=== PATIENT | female | born 1940 | race Caucasian/White ===

== ENCOUNTER 2021-10-09 08:32 | Inpatient (IN) | payer BC, MEDICARE ==
[~2021-10-09] VITALS: Ht 152.4 cm; Wt 65.8 kg
[2021-10-09] MEDS ORDERED: PANTOPRAZOLE 80 MG in SODIUM CHLORIDE 0.9% 100 ML IV STA (09:22)
[2021-10-09] MEDS ORDERED: PANTOPRAZOLE SODIUM 40 MG/VIAL IV STA (09:22)
[2021-10-09] MEDS ORDERED: ONDANSETRON HCL 4MG/2ML INJ IV STA (09:26)
[2021-10-09] MEDS ORDERED: MORPHINE SULFATE 4 MG/ML CPJ (NOT FOR IM USE) IV STA (09:26)
[2021-10-09] MEDS ORDERED: SODIUM CHLORIDE 0.9% 1,000 ML IV ONE (09:30)
[2021-10-09] MEDS ORDERED: MORPHINE SULFATE 4 MG/ML CPJ (NOT FOR IM USE) IV NR (09:45)
[2021-10-09] MEDS ORDERED: ONDANSETRON HCL 4MG/2ML INJ IV NR (09:45)
[2021-10-09 09:46] LABS: BASOPHILS % 0.5 % (0.0-2.0); EOSINOPHILS % 0.6 % (0.0-5.0); HEMATOCRIT. 25.4 % (36.0-48.0); HEMOGLOBIN. 7.8 g/dL (12.0-16.0); MEAN CORPUSCULAR HEMOGLOBIN 22.1 pg (28.0-32.0); MEAN CORPUSCULAR VOLUME 71.7 fL (81.0-99.0); MEAN PLATELET VOLUME 10.3 fl (7.4-10.4); MONOCYTES % 9.7 % (2.0-8.0); NEUTROPHILS % 67.2 % (40.0-76.0); PLATELET 187 x1000/uL (130-400); RED BLOOD CELL COUNT 3.55 mill/uL (4.2-5.4); RED CELL DISTRIBUTION WIDTH 18.4 % (11.6-14.6)
[2021-10-09 09:54] LABS: CHLORIDE 108 mEq/L (98-107)
[2021-10-09 09:57] LABS: INR 1.2; PARTIAL THROMBOPLASTIN TIME 25.4 sec (23.4-31.0); PROTHROMBIN TIME 12.4 sec (9.6-11.0)
[2021-10-09 10:06] LABS: BETA HYDROXYBUTYRATE 0.3 mMol/L (0.0-0.3)
[2021-10-09] MEDS ORDERED: INSULIN REGULAR (HUMULIN R) 300UNITS/3ML VIAL IV ONE (11:30)
[2021-10-09] MEDS ORDERED: SODIUM POLYSTYRENE SULFONATE 15 G/60 ML BOT PO ONE (11:30)
[2021-10-09] MEDS ORDERED: SODIUM BICARBONATE 8.4% 1 MEQ/ML 50ML SYR IV ONE (11:30)
[2021-10-09] MEDS ORDERED: ALBUTEROL (0.083%) 2.5MG/3ML NEB HHN ONE (11:30)
[2021-10-09 12:11] LABS: CLARITY URINE CLEAR (CLEAR); COLOR URINE YELLOW (YELLOW); KETONES URINE NEGATIVE (NEGATIVE); LEUKOCYTE ESTERASE URINE NEGATIVE (NEGATIVE); NITRITE URINE NEGATIVE (NEGATIVE); OCCULT BLOOD URINE NEGATIVE (NEGATIVE); PROTEIN URINE NEGATIVE (NEGATIVE); SPECIFIC GRAVITY URINE 1.018 (1.005-1.030); UROBILINOGEN URINE 0.2 E.U./dL (0.2-1.0)
[2021-10-09] MEDS ORDERED: CEFTRIAXONE 1 G PREMIX 50 ML IV ONE (12:15)
[2021-10-09] MEDS ORDERED: SODIUM BICARBONATE 8.4% 1 MEQ/ML 50ML SYR IV NR (12:30)
[2021-10-09] MEDS ORDERED: SODIUM BICARBONATE 100 MEQ in DEXTROSE 5% WATER 1,000 ML IV SCH (12:30)
[2021-10-09] MEDS: SODIUM BICARBONATE 100 MEQ in SODIUM CHLORIDE 0.45% 1,000 ML IV SCH ×2 (13:21→22:47)
[2021-10-09 16:02] LABS: CREATINE KINASE 30 IU/L (26-192)
[2021-10-09] MEDS ORDERED: INSULIN REGULAR (HUMULIN R) 300UNITS/3ML VIAL SUBCUT NR (17:13)
[2021-10-09] MEDS ORDERED: INSULIN LISPRO (HUMALOG) 300UNITS/3ML VIAL SUBCUT NR (17:14)
[2021-10-09] MEDS ORDERED: INSULIN LISPRO 100 UNITS/ML SUBCUT NR (17:30)
[2021-10-09] MEDS ORDERED: MAGNESIUM/ALUMINUM HYDROXIDE/SIMETHICONE 30ML UDC PO PRN (20:15)
[2021-10-09] MEDS ORDERED: DIPHENHYDRAMINE 50MG/ML VIAL IV PRN (20:15)
[2021-10-09] MEDS ORDERED: ACETAMINOPHEN 325MG TABLET PO PRN (20:15)
[2021-10-09] MEDS ORDERED: DEXTROSE 50% WATER 50ML SYRINGE IV PRN (20:15)
[2021-10-09] MEDS ORDERED: ONDANSETRON HCL 4MG/2ML INJ IV PRN (20:15)
[2021-10-09] MEDS ORDERED: CLONIDINE 0.1MG TABLET PO PRN (20:15)
[2021-10-09 21:00] VITALS: BP 120/94
[2021-10-09] MEDS: BLOOD SUGAR DIAGNOSTIC STRIP TEST SCH (21:00)
[2021-10-09] MEDS: INSULIN GLARGINE 100 UNITS/ML SUBCUT SCH ×2 (22:34→22:38)
[2021-10-09] MEDS: SODIUM CHLORIDE 0.9% 1,000 ML IV SCH (22:38)
[2021-10-09] MEDS: INSULIN LISPRO 100 UNITS/ML SUBCUT SCH (22:46)
[2021-10-09] MEDS: ACETAMINOPHEN 325MG TABLET PO PRN (23:47)
[2021-10-09] MEDS: METOCLOPRAMIDE HCL 10MG/2ML VIAL IV SCH (23:47)
[2021-10-10] VITALS (29 sets, daily range): BP systolic 17–138; BP diastolic 26–113
[2021-10-10] MEDS: SODIUM CHLORIDE 0.9% 1,000 ML IV SCH ×3 (02:17→23:53)
[2021-10-10] MEDS: METOCLOPRAMIDE HCL 10MG/2ML VIAL IV SCH ×3 (06:44→23:53)
[2021-10-10] MEDS: BLOOD SUGAR DIAGNOSTIC STRIP TEST SCH ×3 (07:30→21:00)
[2021-10-10] MEDS: PANTOPRAZOLE SODIUM 40 MG/VIAL IV SCH (09:00)
[2021-10-10 09:56] LABS: BASOPHILS % 0.2 % (0.0-2.0); LYMPHOCYTES % 9.1 % (20.0-50.0); MEAN CORPUSCULAR HEMOGLOBIN 21.9 pg (28.0-32.0); MEAN CORPUSCULAR VOLUME 69.3 fL (81.0-99.0); MEAN PLATELET VOLUME 10.4 fl (7.4-10.4); MONOCYTES % 9.4 % (2.0-8.0); NEUTROPHILS % 81.3 % (40.0-76.0); PLATELET 180 x1000/uL (130-400); RED BLOOD CELL COUNT 2.97 mill/uL (4.2-5.4); RED CELL DISTRIBUTION WIDTH 18.6 % (11.6-14.6)
[2021-10-10 09:57] LABS: CHLORIDE 106 mEq/L (98-107)
[2021-10-10 10:01] LABS: HEMATOCRIT. 20.6 % (36.0-48.0); HEMOGLOBIN. 6.5 g/dL (12.0-16.0)
[2021-10-10 10:04] LABS: PHOSPHORUS 3.4 mg/dL (2.5-4.9); TOTAL IRON BINDING CAPACITY 394 ug/dL (250-450)
[2021-10-10] MEDS: INSULIN LISPRO 100 UNITS/ML SUBCUT SCH ×4 (10:27→22:25)
[2021-10-10 11:10] LABS: FOLIC ACID (FOLATE) SERUM 16.5 ng/mL (>5.38)
[2021-10-10] MEDS: INSULIN GLARGINE 100 UNITS/ML SUBCUT SCH ×2 (11:41→22:25)
[2021-10-10] MEDS: IRON SUCROSE COMPLEX 100 MG/5 ML ML IV SCH (11:50)
[2021-10-10] MEDS ORDERED: MAGNESIUM 2 G PREMIX 50 ML IV NR ×2 (12:00→22:00)
[2021-10-10] MEDS: CITRIC ACID/SODIUM CITRATE SOLN 15ML UDC PO SCH (12:31)
[2021-10-10] MEDS ORDERED: INSULIN LISPRO 100 UNITS/ML SUBCUT PRN (16:00)
[2021-10-10] MEDS: ACETAMINOPHEN 325MG TABLET PO PRN (17:53)
[2021-10-10] MEDS: ZOLPIDEM TARTRATE 5MG TABLET PO PRN (23:53)
[2021-10-11] VITALS (81 sets, daily range): BP systolic 51–152; BP diastolic 18–104
[2021-10-11] MEDS ORDERED: DILTIAZEM HCL 5MG/ML 5ML VIAL IV NR (01:30)
[2021-10-11] MEDS ORDERED: PHENYLEPHRINE 100 MG in DEXT 5% WATER 240 ML IV PRN (02:30)
[2021-10-11] MEDS ORDERED: AMIODARONE HCL 900 MG in DEXT 5% WATER 482 ML IV PRN (02:30)
[2021-10-11 04:34] LABS: BASOPHILS % 0.2 % (0.0-2.0); HEMATOCRIT. 33.1 % (36.0-48.0); HEMOGLOBIN. 10.6 g/dL (12.0-16.0); LYMPHOCYTES % 10.2 % (20.0-50.0); MEAN CORPUSCULAR HEMOGLOBIN 23.7 pg (28.0-32.0); MEAN CORPUSCULAR VOLUME 74.1 fL (81.0-99.0); MEAN PLATELET VOLUME 10.3 fl (7.4-10.4); MONOCYTES % 12.6 % (2.0-8.0); PLATELET 213 x1000/uL (130-400); RED BLOOD CELL COUNT 4.46 mill/uL (4.2-5.4); RED CELL DISTRIBUTION WIDTH 19.8 % (11.6-14.6)
[2021-10-11 04:53] LABS: PHOSPHORUS 2.7 mg/dL (2.5-4.9)
[2021-10-11] MEDS: METOCLOPRAMIDE HCL 10MG/2ML VIAL IV SCH ×4 (05:26→23:54)
[2021-10-11 06:32] LABS: HEPATITIS B SURFACE ANTIGEN NEGATIVE
[2021-10-11] MEDS: BLOOD SUGAR DIAGNOSTIC STRIP TEST SCH ×4 (07:50→21:01)
[2021-10-11] MEDS ORDERED: LIDOCAINE HCL 1% 10 MG/ML 10ML VIAL ONE (08:57)
[2021-10-11] MEDS: PANTOPRAZOLE SODIUM 40 MG/VIAL IV SCH (09:05)
[2021-10-11] MEDS: INSULIN LISPRO 100 UNITS/ML SUBCUT SCH ×4 (09:22→21:14)
[2021-10-11] MEDS: IRON SUCROSE COMPLEX 100 MG/5 ML ML IV SCH (09:51)
[2021-10-11] MEDS ORDERED: SODIUM CHLORIDE 0.45% 250 ML IV ONE (11:15)
[2021-10-11 11:35] LABS: PLATELET ESTIMATE NORMAL
[2021-10-11 12:56] LABS: HEMOGLOBIN 8.7 g/dL (12.0-16.0)
[2021-10-11] MEDS: MIDODRINE HCL 5MG TABLET PO SCH ×2 (13:05→16:51)
[2021-10-11] MEDS: SODIUM CHLORIDE 0.9% 1,000 ML IV SCH (13:06)
[2021-10-11] MEDS ORDERED: METOPROLOL TARTRATE 5MG/5ML VIAL IV PRN (15:00)
[2021-10-11] MEDS ORDERED: DIGOXIN 500MCG/2ML AMP IV NR (15:00)
[2021-10-11] MEDS: CITRIC ACID/SODIUM CITRATE SOLN 15ML UDC PO SCH (16:50)
[2021-10-11 20:15] LABS: HEMOGLOBIN 10.2 g/dL (12.0-16.0)
[2021-10-11] MEDS: INSULIN GLARGINE 100 UNITS/ML SUBCUT SCH (21:21)
[2021-10-12] VITALS (48 sets, daily range): BP systolic 71–161; BP diastolic 21–93
[2021-10-12 00:44] LABS: HEMATOCRIT 33.1 % (36.0-48.0); HEMOGLOBIN 10.5 g/dL (12.0-16.0)
[2021-10-12] MEDS: SODIUM CHLORIDE 0.9% 1,000 ML IV SCH (01:51)
[2021-10-12] MEDS: METOCLOPRAMIDE HCL 10MG/2ML VIAL IV SCH ×4 (05:45→23:11)
[2021-10-12 06:45] LABS: BASOPHILS % 0.1 % (0.0-2.0); EOSINOPHILS % 0.1 % (0.0-5.0); HEMOGLOBIN. 9.9 g/dL (12.0-16.0); LYMPHOCYTES % 13.4 % (20.0-50.0); MEAN CORPUSCULAR VOLUME 75.3 fL (81.0-99.0); MEAN PLATELET VOLUME 10.3 fl (7.4-10.4); MONOCYTES % 11.7 % (2.0-8.0); NEUTROPHILS % 74.7 % (40.0-76.0); PLATELET 163 x1000/uL (130-400); RED BLOOD CELL COUNT 4.12 mill/uL (4.2-5.4); RED CELL DISTRIBUTION WIDTH 19.5 % (11.6-14.6)
[2021-10-12 07:02] LABS: PHOSPHORUS 2.6 mg/dL (2.5-4.9)
[2021-10-12] MEDS: BLOOD SUGAR DIAGNOSTIC STRIP TEST SCH ×4 (08:00→21:31)
[2021-10-12] MEDS: INSULIN LISPRO 100 UNITS/ML SUBCUT SCH ×4 (08:00→21:31)
[2021-10-12] MEDS: PANTOPRAZOLE SODIUM 40 MG/VIAL IV SCH (08:44)
[2021-10-12] MEDS: CITRIC ACID/SODIUM CITRATE SOLN 15ML UDC PO SCH ×3 (08:44→16:51)
[2021-10-12] MEDS: MIDODRINE HCL 5MG TABLET PO SCH ×3 (08:45→16:55)
[2021-10-12] MEDS ORDERED: FUROSEMIDE 40MG/4ML VIAL IVP NR (09:15)
[2021-10-12] MEDS: IRON SUCROSE COMPLEX 100 MG/5 ML ML IV SCH (09:30)
[2021-10-12] MEDS ORDERED: LACTULOSE 20G/30ML UDC PO NR (11:00)
[2021-10-12] MEDS ORDERED: METOPROLOL TARTRATE 25MG TABLET PO SCH (11:15)
[2021-10-12 12:59] LABS: HEMATOCRIT 31.3 % (36.0-48.0); HEMOGLOBIN 10.1 g/dL (12.0-16.0)
[2021-10-12] MEDS ORDERED: DOPAMINE 400MG/250ML PREMIX 250 ML IV PRN (13:00)
[2021-10-12] MEDS: INSULIN GLARGINE 100 UNITS/ML SUBCUT SCH (21:31)
[2021-10-12] MEDS: ZOLPIDEM TARTRATE 5MG TABLET PO PRN (23:17)
[2021-10-13] VITALS (57 sets, daily range): BP systolic 74–188; BP diastolic 33–112
[2021-10-13] MEDS: METOCLOPRAMIDE HCL 10MG/2ML VIAL IV SCH ×4 (05:17→23:24)
[2021-10-13] MEDS: BLOOD SUGAR DIAGNOSTIC STRIP TEST SCH ×4 (08:14→21:15)
[2021-10-13] MEDS: INSULIN LISPRO 100 UNITS/ML SUBCUT SCH ×4 (08:14→21:16)
[2021-10-13 08:50] LABS: BASOPHILS % 0.1 % (0.0-2.0); EOSINOPHILS % 0.5 % (0.0-5.0); HEMATOCRIT. 30.9 % (36.0-48.0); HEMOGLOBIN. 9.9 g/dL (12.0-16.0); LYMPHOCYTES % 12.5 % (20.0-50.0); MEAN CORPUSCULAR HEMOGLOBIN 24.4 pg (28.0-32.0); MEAN CORPUSCULAR VOLUME 76.1 fL (81.0-99.0); MEAN PLATELET VOLUME 9.9 fl (7.4-10.4); MONOCYTES % 11.9 % (2.0-8.0); RED BLOOD CELL COUNT 4.06 mill/uL (4.2-5.4); RED CELL DISTRIBUTION WIDTH 20.4 % (11.6-14.6)
[2021-10-13] MEDS: MIDODRINE HCL 5MG TABLET PO SCH ×3 (09:00→16:29)
[2021-10-13 09:29] LABS: PLATELET 160 x1000/uL (130-400)
[2021-10-13] MEDS: IRON SUCROSE COMPLEX 100 MG/5 ML ML IV SCH (09:34)
[2021-10-13] MEDS: CITRIC ACID/SODIUM CITRATE SOLN 15ML UDC PO SCH ×3 (09:34→17:46)
[2021-10-13] MEDS: PANTOPRAZOLE SODIUM 40 MG/VIAL IV SCH (09:34)
[2021-10-13] MEDS: GUAIFENESIN 200MG/10ML SUGAR FREE UDC PO PRN (13:20)
[2021-10-13] MEDS: LACTULOSE 20G/30ML UDC PO SCH ×2 (13:21→21:15)
[2021-10-13] MEDS: HYDRALAZINE HCL 25MG TABLET PO SCH (16:43)
[2021-10-13] MEDS ORDERED: HYDRALAZINE 20MG/ML VIAL IV PRN (18:30)
[2021-10-13] MEDS: AMLODIPINE 5MG TABLET PO SCH (18:31)
[2021-10-13] MEDS: ZOLPIDEM TARTRATE 5MG TABLET PO PRN (21:15)
[2021-10-13] MEDS: INSULIN GLARGINE 100 UNITS/ML SUBCUT SCH (21:17)
[2021-10-14] VITALS (48 sets, daily range): BP systolic 75–168; BP diastolic 25–91
[2021-10-14] MEDS: METOCLOPRAMIDE HCL 10MG/2ML VIAL IV SCH ×4 (05:11→23:33)
[2021-10-14] MEDS: LACTULOSE 20G/30ML UDC PO SCH ×3 (05:11→21:32)
[2021-10-14] MEDS: BLOOD SUGAR DIAGNOSTIC STRIP TEST SCH ×4 (07:52→21:32)
[2021-10-14] MEDS: INSULIN LISPRO 100 UNITS/ML SUBCUT SCH ×4 (07:52→21:00)
[2021-10-14] MEDS: MIDODRINE HCL 5MG TABLET PO SCH (08:19)
[2021-10-14] MEDS: AMLODIPINE 5MG TABLET PO SCH (08:53)
[2021-10-14] MEDS: PANTOPRAZOLE SODIUM 40 MG/VIAL IV SCH (08:53)
[2021-10-14] MEDS: CITRIC ACID/SODIUM CITRATE SOLN 15ML UDC PO SCH ×3 (08:53→17:54)
[2021-10-14] MEDS: FUROSEMIDE 40MG/4ML VIAL IVP SCH (08:53)
[2021-10-14] MEDS: HYDRALAZINE HCL 25MG TABLET PO SCH ×3 (08:54→17:00)
[2021-10-14 09:44] LABS: BASOPHILS % 0.1 % (0.0-2.0); EOSINOPHILS % 0.6 % (0.0-5.0); HEMATOCRIT. 32.1 % (36.0-48.0); HEMOGLOBIN. 10.4 g/dL (12.0-16.0); LYMPHOCYTES % 12.2 % (20.0-50.0); MEAN CORPUSCULAR HEMOGLOBIN 24.9 pg (28.0-32.0); MEAN CORPUSCULAR VOLUME 77.3 fL (81.0-99.0); MEAN PLATELET VOLUME 9.5 fl (7.4-10.4); MONOCYTES % 13.8 % (2.0-8.0); NEUTROPHILS % 73.3 % (40.0-76.0); PLATELET 144 x1000/uL (130-400); RED BLOOD CELL COUNT 4.15 mill/uL (4.2-5.4); RED CELL DISTRIBUTION WIDTH 20.6 % (11.6-14.6)
[2021-10-14] MEDS: ISOSORBIDE DINITRATE 10MG TABLET PO SCH ×2 (12:04→17:00)
[2021-10-14] MEDS: INSULIN GLARGINE 100 UNITS/ML SUBCUT SCH (21:35)
[2021-10-15] VITALS (45 sets, daily range): BP systolic 91–148; BP diastolic 32–85
[2021-10-15 05:25] LABS: BASOPHILS % 0.1 % (0.0-2.0); EOSINOPHILS % 1.2 % (0.0-5.0); HEMATOCRIT. 31.1 % (36.0-48.0); HEMOGLOBIN. 10.1 g/dL (12.0-16.0); LYMPHOCYTES % 13.1 % (20.0-50.0); MEAN CORPUSCULAR HEMOGLOBIN 25.2 pg (28.0-32.0); MEAN CORPUSCULAR VOLUME 78.1 fL (81.0-99.0); MEAN PLATELET VOLUME 9.2 fl (7.4-10.4); MONOCYTES % 14.6 % (2.0-8.0); PLATELET 141 x1000/uL (130-400); RED BLOOD CELL COUNT 3.99 mill/uL (4.2-5.4); RED CELL DISTRIBUTION WIDTH 21.6 % (11.6-14.6)
[2021-10-15 05:33] LABS: INR 1.2; PROTHROMBIN TIME 13.2 sec (9.6-11.0)
[2021-10-15] MEDS: LACTULOSE 20G/30ML UDC PO SCH ×3 (06:00→21:04)
[2021-10-15] MEDS: METOCLOPRAMIDE HCL 10MG/2ML VIAL IV SCH ×4 (06:21→23:24)
[2021-10-15] MEDS: BLOOD SUGAR DIAGNOSTIC STRIP TEST SCH ×4 (07:58→21:04)
[2021-10-15] MEDS: INSULIN LISPRO 100 UNITS/ML SUBCUT SCH ×4 (07:58→21:03)
[2021-10-15] MEDS: AMLODIPINE 5MG TABLET PO SCH (08:28)
[2021-10-15] MEDS: FUROSEMIDE 40MG/4ML VIAL IVP SCH (08:29)
[2021-10-15] MEDS: HYDRALAZINE HCL 25MG TABLET PO SCH ×3 (08:29→17:27)
[2021-10-15] MEDS: ISOSORBIDE DINITRATE 10MG TABLET PO SCH ×2 (08:29→12:34)
[2021-10-15] MEDS: CITRIC ACID/SODIUM CITRATE SOLN 15ML UDC PO SCH ×3 (08:29→17:27)
[2021-10-15] MEDS: PANTOPRAZOLE SODIUM 40 MG/VIAL IV SCH (08:29)
[2021-10-15] MEDS ORDERED: MIDAZOLAM HCL 2 MG/2 ML VIAL ONE (14:54)
[2021-10-15] MEDS ORDERED: PROPOFOL 200MG/20ML VIAL IV ONE (14:54)
[2021-10-15] MEDS ORDERED: LIDOCAINE HCL 1% 10 MG/ML 10ML VIAL ONE (14:54)
[2021-10-15] MEDS ORDERED: PHENYLEPHRINE HCL 10 MG/ML 1ML (IV VIAL) IV ONE (14:55)
[2021-10-15] MEDS ORDERED: EPHEDRINE SULFATE 50MG/ML VIAL ONE (14:58)
[2021-10-15] MEDS: ACETAMINOPHEN 325MG TABLET PO PRN (20:43)
[2021-10-15] MEDS: INSULIN GLARGINE 100 UNITS/ML SUBCUT SCH (21:04)
[2021-10-16] VITALS (53 sets, daily range): BP systolic 88–158; BP diastolic 26–99
[2021-10-16 05:42] LABS: BASOPHILS % 0.2 % (0.0-2.0); HEMATOCRIT. 32.6 % (36.0-48.0); HEMOGLOBIN. 10.5 g/dL (12.0-16.0); LYMPHOCYTES % 15.5 % (20.0-50.0); MEAN CORPUSCULAR VOLUME 77.7 fL (81.0-99.0); MEAN PLATELET VOLUME 9.7 fl (7.4-10.4); MONOCYTES % 13.1 % (2.0-8.0); NEUTROPHILS % 69.2 % (40.0-76.0); PLATELET 150 x1000/uL (130-400); RED BLOOD CELL COUNT 4.19 mill/uL (4.2-5.4); RED CELL DISTRIBUTION WIDTH 22.1 % (11.6-14.6)
[2021-10-16] MEDS: METOCLOPRAMIDE HCL 10MG/2ML VIAL IV SCH ×4 (06:03→23:59)
[2021-10-16] MEDS: LACTULOSE 20G/30ML UDC PO SCH ×3 (06:46→21:08)
[2021-10-16] MEDS: BLOOD SUGAR DIAGNOSTIC STRIP TEST SCH ×4 (08:32→21:08)
[2021-10-16] MEDS: CITRIC ACID/SODIUM CITRATE SOLN 15ML UDC PO SCH ×3 (08:39→18:01)
[2021-10-16] MEDS: PANTOPRAZOLE SODIUM 40 MG/VIAL IV SCH (08:39)
[2021-10-16] MEDS: AMLODIPINE 5MG TABLET PO SCH (08:40)
[2021-10-16] MEDS: INSULIN LISPRO 100 UNITS/ML SUBCUT SCH ×4 (08:40→21:00)
[2021-10-16] MEDS: HYDRALAZINE HCL 25MG TABLET PO SCH ×3 (09:00→17:00)
[2021-10-16] MEDS ORDERED: DILTIAZEM HCL 5MG/ML 5ML VIAL IV SCH (09:30)
[2021-10-16] MEDS ORDERED: AMIODARONE HCL 150 MG in DEXT 5% WATER 100 ML IV SCH (10:00)
[2021-10-16] MEDS ORDERED: POTASSIUM CHLORIDE INJ 40 MEQ in DEXT 5% WATER 250 ML IV SCH (11:00)
[2021-10-16] MEDS ORDERED: POTASSIUM CHLORIDE 20MEQ/PACKET PO NR (11:00)
[2021-10-16] MEDS: FUROSEMIDE 40MG/4ML VIAL IVP SCH (11:08)
[2021-10-16] MEDS ORDERED: DILTIAZEM HCL 5MG/ML 5ML VIAL IV NR (11:30)
[2021-10-16] MEDS: METOPROLOL TARTRATE 25MG TABLET PO SCH ×2 (11:46→21:07)
[2021-10-16] MEDS ORDERED: AMIODARONE HCL 900 MG in DEXT 5% WATER 482 ML IV PRN (12:30)
[2021-10-16] MEDS: METOPROLOL TARTRATE 5MG/5ML VIAL IV PRN (18:53)
[2021-10-16] MEDS: INSULIN GLARGINE 100 UNITS/ML SUBCUT SCH (21:54)
[2021-10-17] VITALS (47 sets, daily range): BP systolic 92–157; BP diastolic 35–94
[2021-10-17] MEDS: METOCLOPRAMIDE HCL 10MG/2ML VIAL IV SCH ×3 (05:35→18:24)
[2021-10-17] MEDS: METOPROLOL TARTRATE 5MG/5ML VIAL IV PRN (05:35)
[2021-10-17] MEDS: LACTULOSE 20G/30ML UDC PO SCH ×3 (05:36→22:43)
[2021-10-17 05:53] LABS: BASOPHILS % 0.3 % (0.0-2.0); EOSINOPHILS % 2.2 % (0.0-5.0); HEMOGLOBIN. 10.9 g/dL (12.0-16.0); LYMPHOCYTES % 16.6 % (20.0-50.0); MEAN CORPUSCULAR HEMOGLOBIN 24.9 pg (28.0-32.0); MEAN PLATELET VOLUME 9.9 fl (7.4-10.4); MONOCYTES % 10.1 % (2.0-8.0); NEUTROPHILS % 70.8 % (40.0-76.0); PLATELET 148 x1000/uL (130-400); RED BLOOD CELL COUNT 4.36 mill/uL (4.2-5.4); RED CELL DISTRIBUTION WIDTH 23.1 % (11.6-14.6)
[2021-10-17] MEDS ORDERED: IODIXANOL 320MG/ML 100 ML BOTTLE IV ONE ×2 (07:18→13:23)
[2021-10-17] MEDS ORDERED: DIPHENHYDRAMINE 50MG/ML VIAL ONE (07:18)
[2021-10-17] MEDS ORDERED: HEPARIN 1000 UNITS/ML 10ML ONE (07:18)
[2021-10-17] MEDS ORDERED: FENTANYL CITRATE/PF 50MCG/ML 2ML VIAL ONE ×2 (07:18→14:04)
[2021-10-17] MEDS ORDERED: VERAPAMIL HCL 2.5 MG/1 ML 2ML VIAL IV ONE (07:18)
[2021-10-17] MEDS ORDERED: MIDAZOLAM HCL 2 MG/2 ML VIAL ONE (07:19)
[2021-10-17] MEDS ORDERED: LIDOCAINE HCL 1% 10 MG/ML 10ML VIAL ONE ×4 (07:19→15:03)
[2021-10-17] MEDS: INSULIN LISPRO 100 UNITS/ML SUBCUT SCH ×4 (07:42→21:25)
[2021-10-17] MEDS: BLOOD SUGAR DIAGNOSTIC STRIP TEST SCH ×4 (07:42→21:11)
[2021-10-17] MEDS: CITRIC ACID/SODIUM CITRATE SOLN 15ML UDC PO SCH ×3 (09:00→18:49)
[2021-10-17] MEDS: PANTOPRAZOLE SODIUM 40 MG/VIAL IV SCH (09:14)
[2021-10-17] MEDS ORDERED: ATROPINE SULFATE 1MG/10ML SYR IV PRN (09:30)
[2021-10-17] MEDS: HYDRALAZINE HCL 25MG TABLET PO SCH ×3 (09:54→18:24)
[2021-10-17] MEDS: METOPROLOL TARTRATE 25MG TABLET PO SCH (09:54)
[2021-10-17] MEDS: AMLODIPINE 5MG TABLET PO SCH (09:56)
[2021-10-17] MEDS ORDERED: GENTAMICIN SULF 40MG/ML 2ML VIAL ONE (13:23)
[2021-10-17] MEDS ORDERED: PROPOFOL 200MG/20ML VIAL IV ONE (13:52)
[2021-10-17] MEDS ORDERED: PHENYLEPHRINE HCL 10 MG/ML 1ML (IV VIAL) IV ONE (13:53)
[2021-10-17] MEDS ORDERED: ATROPINE SULFATE 1MG/10ML SYR ONE (14:12)
[2021-10-17] MEDS ORDERED: CEFAZOLIN SODIUM 1000MG/VIAL ONE (14:39)
[2021-10-17] MEDS ORDERED: ONDANSETRON HCL 4MG/2ML INJ ONE (14:44)
[2021-10-17] MEDS ORDERED: AMIODARONE HCL 50MG/ML 3ML VIAL IV ONE (15:11)
[2021-10-17] MEDS ORDERED: AMIODARONE HCL 900 MG in DEXT 5% WATER 482 ML IV PRN (16:00)
[2021-10-17] MEDS ORDERED: HYDROCODONE/ACETAMINOPHEN 5/325MG TABLET PO PRN (16:30)
[2021-10-17] MEDS ORDERED: NALOXONE HCL 0.4MG/ML VIAL IV PRN (16:45)
[2021-10-17] MEDS ORDERED: AMIODARONE HCL 900 MG in DEXT 5% WATER 482 ML IV SCH (18:00)
[2021-10-17] MEDS: SOTALOL HCL 80MG TABLET PO SCH (22:44)
[2021-10-17] MEDS: INSULIN GLARGINE 100 UNITS/ML SUBCUT SCH (22:45)
[2021-10-18] VITALS (44 sets, daily range): BP systolic 106–159; BP diastolic 38–81
[2021-10-18] MEDS: METOCLOPRAMIDE HCL 10MG/2ML VIAL IV SCH ×4 (01:43→18:11)
[2021-10-18 05:59] LABS: BASOPHILS % 0.2 % (0.0-2.0); EOSINOPHILS % 0.9 % (0.0-5.0); HEMATOCRIT. 33.8 % (36.0-48.0); HEMOGLOBIN. 10.9 g/dL (12.0-16.0); LYMPHOCYTES % 9.1 % (20.0-50.0); MEAN CORPUSCULAR HEMOGLOBIN 25.1 pg (28.0-32.0); MEAN CORPUSCULAR VOLUME 78.1 fL (81.0-99.0); MEAN PLATELET VOLUME 9.8 fl (7.4-10.4); MONOCYTES % 14.9 % (2.0-8.0); NEUTROPHILS % 74.9 % (40.0-76.0); PLATELET 125 x1000/uL (130-400); RED BLOOD CELL COUNT 4.33 mill/uL (4.2-5.4)
[2021-10-18] MEDS: LACTULOSE 20G/30ML UDC PO SCH ×3 (06:12→22:25)
[2021-10-18] MEDS: BLOOD SUGAR DIAGNOSTIC STRIP TEST SCH ×4 (08:21→21:20)
[2021-10-18] MEDS: SOTALOL HCL 80MG TABLET PO SCH ×2 (08:51→21:20)
[2021-10-18] MEDS: PANTOPRAZOLE SODIUM 40 MG/VIAL IV SCH (08:51)
[2021-10-18] MEDS: HYDRALAZINE HCL 25MG TABLET PO SCH ×3 (08:52→18:12)
[2021-10-18] MEDS: CITRIC ACID/SODIUM CITRATE SOLN 15ML UDC PO SCH ×2 (08:52→13:27)
[2021-10-18] MEDS: AMLODIPINE 5MG TABLET PO SCH (08:53)
[2021-10-18] MEDS: INSULIN LISPRO 100 UNITS/ML SUBCUT SCH ×4 (08:53→21:31)
[2021-10-18] MEDS: INSULIN GLARGINE 100 UNITS/ML SUBCUT SCH (22:31)
[2021-10-18] MEDS: METOPROLOL TARTRATE 5MG/5ML VIAL IV PRN (23:05)
[2021-10-19] VITALS (45 sets, daily range): BP systolic 117–158; BP diastolic 45–108
[2021-10-19] MEDS: METOCLOPRAMIDE HCL 10MG/2ML VIAL IV SCH ×4 (00:27→18:06)
[2021-10-19 06:54] LABS: BASOPHILS % 0.2 % (0.0-2.0); EOSINOPHILS % 1.2 % (0.0-5.0); HEMATOCRIT. 35.7 % (36.0-48.0); HEMOGLOBIN. 11.3 g/dL (12.0-16.0); LYMPHOCYTES % 9.8 % (20.0-50.0); MEAN CORPUSCULAR HEMOGLOBIN 25.1 pg (28.0-32.0); MEAN CORPUSCULAR VOLUME 78.9 fL (81.0-99.0); MEAN PLATELET VOLUME 10.1 fl (7.4-10.4); MONOCYTES % 13.5 % (2.0-8.0); NEUTROPHILS % 75.3 % (40.0-76.0); PLATELET 100 x1000/uL (130-400); RED BLOOD CELL COUNT 4.53 mill/uL (4.2-5.4); RED CELL DISTRIBUTION WIDTH 23.7 % (11.6-14.6)
[2021-10-19] MEDS: LACTULOSE 20G/30ML UDC PO SCH ×3 (07:19→21:59)
[2021-10-19] MEDS: INSULIN LISPRO 100 UNITS/ML SUBCUT SCH ×4 (08:06→21:57)
[2021-10-19] MEDS: BLOOD SUGAR DIAGNOSTIC STRIP TEST SCH ×4 (08:06→21:36)
[2021-10-19] MEDS: HYDRALAZINE HCL 25MG TABLET PO SCH ×3 (08:07→18:06)
[2021-10-19] MEDS: AMLODIPINE 5MG TABLET PO SCH (08:07)
[2021-10-19] MEDS: PANTOPRAZOLE SODIUM 40 MG/VIAL IV SCH (08:07)
[2021-10-19] MEDS: SOTALOL HCL 80MG TABLET PO SCH ×2 (08:08→21:42)
[2021-10-19 17:57] LABS: INR 1.3; PROTHROMBIN TIME 13.5 sec (9.6-11.0)
[2021-10-19] MEDS: INSULIN GLARGINE 100 UNITS/ML SUBCUT SCH (21:57)
[2021-10-20] VITALS (46 sets, daily range): BP systolic 107–152; BP diastolic 43–106
[2021-10-20] MEDS: METOCLOPRAMIDE HCL 10MG/2ML VIAL IV SCH ×4 (00:54→18:31)
[2021-10-20 05:35] LABS: BASOPHILS % 0.2 % (0.0-2.0); EOSINOPHILS % 0.2 % (0.0-5.0); HEMATOCRIT. 34.1 % (36.0-48.0); HEMOGLOBIN. 10.9 g/dL (12.0-16.0); LYMPHOCYTES % 13.7 % (20.0-50.0); MEAN CORPUSCULAR HEMOGLOBIN 24.8 pg (28.0-32.0); MEAN CORPUSCULAR VOLUME 77.6 fL (81.0-99.0); MEAN PLATELET VOLUME 9.8 fl (7.4-10.4); MONOCYTES % 13.6 % (2.0-8.0); NEUTROPHILS % 72.3 % (40.0-76.0); PLATELET 86 x1000/uL (130-400)
[2021-10-20] MEDS: LACTULOSE 20G/30ML UDC PO SCH ×3 (06:00→22:27)
[2021-10-20] MEDS: BLOOD SUGAR DIAGNOSTIC STRIP TEST SCH ×4 (07:50→21:00)
[2021-10-20] MEDS ORDERED: LIDOCAINE HCL/PF 1% 10 MG/ML 5ML VIAL ONE (07:54)
[2021-10-20 08:05] LABS: INR 1.3; PROTHROMBIN TIME 13.7 sec (9.6-11.0)
[2021-10-20] MEDS: PANTOPRAZOLE SODIUM 40 MG/VIAL IV SCH (09:10)
[2021-10-20] MEDS: AMLODIPINE 5MG TABLET PO SCH (09:10)
[2021-10-20] MEDS: INSULIN LISPRO 100 UNITS/ML SUBCUT SCH ×4 (09:10→22:30)
[2021-10-20] MEDS: HYDRALAZINE HCL 25MG TABLET PO SCH ×3 (09:11→18:31)
[2021-10-20] MEDS: SOTALOL HCL 80MG TABLET PO SCH ×2 (09:11→22:27)
[2021-10-20] MEDS ORDERED: LIDOCAINE HCL 1% 10 MG/ML 10ML VIAL ONE (09:52)
[2021-10-20] MEDS ORDERED: SODIUM BICARBONATE 4% (2.4MEQ) 5ML VIAL IV ONE (09:52)
[2021-10-20] MEDS: INSULIN GLARGINE 100 UNITS/ML SUBCUT SCH (22:30)
[2021-10-21] VITALS (26 sets, daily range): BP systolic 70–156; BP diastolic 37–90
[2021-10-21] MEDS: METOCLOPRAMIDE HCL 10MG/2ML VIAL IV SCH ×5 (00:06→23:59)
[2021-10-21 05:48] LABS: BASOPHILS % 0.2 % (0.0-2.0); EOSINOPHILS % 0.2 % (0.0-5.0); HEMATOCRIT. 35.7 % (36.0-48.0); HEMOGLOBIN. 11.5 g/dL (12.0-16.0); LYMPHOCYTES % 11.7 % (20.0-50.0); MEAN CORPUSCULAR HEMOGLOBIN 24.7 pg (28.0-32.0); MEAN PLATELET VOLUME 10.5 fl (7.4-10.4); MONOCYTES % 14.4 % (2.0-8.0); NEUTROPHILS % 73.5 % (40.0-76.0); PLATELET 109 x1000/uL (130-400); RED BLOOD CELL COUNT 4.64 mill/uL (4.2-5.4); RED CELL DISTRIBUTION WIDTH 23.2 % (11.6-14.6)
[2021-10-21] MEDS: LACTULOSE 20G/30ML UDC PO SCH ×3 (06:24→21:08)
[2021-10-21] MEDS: BLOOD SUGAR DIAGNOSTIC STRIP TEST SCH ×4 (08:06→21:10)
[2021-10-21] MEDS: INSULIN LISPRO 100 UNITS/ML SUBCUT SCH ×4 (08:06→21:13)
[2021-10-21] MEDS: SODIUM CHLORIDE 0.9% 1,000 ML IV SCH (08:15)
[2021-10-21] MEDS: CITRIC ACID/SODIUM CITRATE SOLN 15ML UDC PO SCH ×3 (08:15→17:00)
[2021-10-21] MEDS: PANTOPRAZOLE SODIUM 40 MG/VIAL IV SCH (08:15)
[2021-10-21] MEDS: SOTALOL HCL 80MG TABLET PO SCH ×2 (08:15→21:10)
[2021-10-21] MEDS: HYDRALAZINE HCL 25MG TABLET PO SCH ×3 (08:16→18:07)
[2021-10-21] MEDS: AMLODIPINE 5MG TABLET PO SCH (08:16)
[2021-10-21] MEDS: RIFAXIMIN 550 MG TABLET PO SCH (21:08)
[2021-10-21] MEDS: INSULIN GLARGINE 100 UNITS/ML SUBCUT SCH (21:12)
[2021-10-22] VITALS (7 sets, daily range): BP systolic 100–179; BP diastolic 36–81
[2021-10-22] MEDS: SODIUM CHLORIDE 0.9% 1,000 ML IV SCH
[2021-10-22] MEDS: LACTULOSE 20G/30ML UDC PO SCH ×3 (06:17→21:14)
[2021-10-22] MEDS: METOCLOPRAMIDE HCL 10MG/2ML VIAL IV SCH ×4 (06:17→23:58)
[2021-10-22] MEDS: BLOOD SUGAR DIAGNOSTIC STRIP TEST SCH ×4 (06:17→21:22)
[2021-10-22 06:33] LABS: BASOPHILS % 0.3 % (0.0-2.0); EOSINOPHILS % 0.1 % (0.0-5.0); HEMATOCRIT. 36.9 % (36.0-48.0); HEMOGLOBIN. 12.2 g/dL (12.0-16.0); LYMPHOCYTES % 9.4 % (20.0-50.0); MEAN CORPUSCULAR VOLUME 75.6 fL (81.0-99.0); MEAN PLATELET VOLUME 10.6 fl (7.4-10.4); MONOCYTES % 11.4 % (2.0-8.0); NEUTROPHILS % 78.8 % (40.0-76.0); PLATELET 122 x1000/uL (130-400); RED BLOOD CELL COUNT 4.88 mill/uL (4.2-5.4); RED CELL DISTRIBUTION WIDTH 23.5 % (11.6-14.6)
[2021-10-22 06:43] LABS: PHOSPHORUS 3.3 mg/dL (2.5-4.9)
[2021-10-22] MEDS: INSULIN LISPRO 100 UNITS/ML SUBCUT SCH ×4 (07:50→21:14)
[2021-10-22] MEDS: PANTOPRAZOLE SODIUM 40 MG/VIAL IV SCH (09:14)
[2021-10-22] MEDS: RIFAXIMIN 550 MG TABLET PO SCH ×2 (09:15→21:14)
[2021-10-22] MEDS: CITRIC ACID/SODIUM CITRATE SOLN 15ML UDC PO SCH (09:15)
[2021-10-22] MEDS: SOTALOL HCL 80MG TABLET PO SCH ×2 (09:15→21:14)
[2021-10-22] MEDS: HYDRALAZINE HCL 25MG TABLET PO SCH ×3 (09:15→17:00)
[2021-10-22] MEDS: AMLODIPINE 5MG TABLET PO SCH (09:15)
[2021-10-22] MEDS: CITRIC ACID/SODIUM CITRATE SOLN 30ML UDC PO SCH ×2 (12:46→17:54)
[2021-10-22] MEDS: INSULIN GLARGINE 100 UNITS/ML SUBCUT SCH (21:13)
[2021-10-23] VITALS: BP 144/39
[2021-10-23 04:00] VITALS: BP 111/55
[2021-10-23] MEDS: METOCLOPRAMIDE HCL 10MG/2ML VIAL IV SCH ×2 (05:18→11:31)
[2021-10-23] MEDS: LACTULOSE 20G/30ML UDC PO SCH ×3 (05:18→21:45)
[2021-10-23] MEDS: BLOOD SUGAR DIAGNOSTIC STRIP TEST SCH ×4 (05:47→20:46)
[2021-10-23] MEDS: INSULIN LISPRO 100 UNITS/ML SUBCUT SCH ×4 (06:14→21:43)
[2021-10-23 08:00] VITALS: BP 120/50
[2021-10-23 08:27] LABS: BASOPHILS % 0.2 % (0.0-2.0); EOSINOPHILS % 0.4 % (0.0-5.0); HEMATOCRIT. 36.9 % (36.0-48.0); LYMPHOCYTES % 14.2 % (20.0-50.0); MEAN CORPUSCULAR HEMOGLOBIN 24.8 pg (28.0-32.0); MEAN CORPUSCULAR VOLUME 76.4 fL (81.0-99.0); MEAN PLATELET VOLUME 10.5 fl (7.4-10.4); MONOCYTES % 13.1 % (2.0-8.0); NEUTROPHILS % 72.1 % (40.0-76.0); PLATELET 107 x1000/uL (130-400); RED BLOOD CELL COUNT 4.83 mill/uL (4.2-5.4); RED CELL DISTRIBUTION WIDTH 22.8 % (11.6-14.6)
[2021-10-23] MEDS: HYDRALAZINE HCL 25MG TABLET PO SCH ×3 (09:00→17:23)
[2021-10-23] MEDS: SOTALOL HCL 80MG TABLET PO SCH ×2 (09:52→21:41)
[2021-10-23] MEDS: CITRIC ACID/SODIUM CITRATE SOLN 30ML UDC PO SCH ×3 (09:53→17:22)
[2021-10-23] MEDS: AMLODIPINE 5MG TABLET PO SCH (09:55)
[2021-10-23] MEDS ORDERED: SODIUM BICARBONATE 4% (2.4MEQ) 5ML VIAL IV ONE (09:57)
[2021-10-23] MEDS ORDERED: LIDOCAINE HCL/PF 1% 10 MG/ML 5ML VIAL ONE (09:58)
[2021-10-23] MEDS ORDERED: PANTOPRAZOLE 40MG DR TABLET PO ONE (10:30)
[2021-10-23] MEDS: PANTOPRAZOLE 40MG DR TABLET PO SCH (11:31)
[2021-10-23] MEDS: RIFAXIMIN 550 MG TABLET PO SCH ×2 (11:31→21:41)
[2021-10-23 12:00] VITALS: BP 122/52
[2021-10-23 16:00] VITALS: BP 143/47
[2021-10-23 20:00] VITALS: BP 156/51
[2021-10-23] MEDS: INSULIN GLARGINE 100 UNITS/ML SUBCUT SCH (21:44)
[2021-10-24] VITALS: BP 135/63
[2021-10-24 04:00] VITALS: BP 119/56
[2021-10-24] MEDS: BLOOD SUGAR DIAGNOSTIC STRIP TEST SCH ×4 (05:40→21:03)
[2021-10-24] MEDS: LACTULOSE 20G/30ML UDC PO SCH ×3 (05:41→21:34)
[2021-10-24] MEDS: PANTOPRAZOLE 40MG DR TABLET PO SCH (05:41)
[2021-10-24] MEDS: INSULIN LISPRO 100 UNITS/ML SUBCUT SCH ×4 (06:11→21:00)
[2021-10-24 07:19] LABS: HEMATOCRIT. 37.6 % (36.0-48.0); HEMOGLOBIN. 12.3 g/dL (12.0-16.0); MEAN CORPUSCULAR HEMOGLOBIN 24.8 pg (28.0-32.0); MEAN PLATELET VOLUME 9.6 fl (7.4-10.4); PLATELET 112 x1000/uL (130-400); RED BLOOD CELL COUNT 4.95 mill/uL (4.2-5.4); RED CELL DISTRIBUTION WIDTH 22.8 % (11.6-14.6)
[2021-10-24 08:00] VITALS: BP 135/55
[2021-10-24] MEDS: CITRIC ACID/SODIUM CITRATE SOLN 30ML UDC PO SCH ×3 (10:18→18:24)
[2021-10-24] MEDS: HYDRALAZINE HCL 25MG TABLET PO SCH ×3 (10:18→18:25)
[2021-10-24] MEDS: SOTALOL HCL 80MG TABLET PO SCH ×2 (10:19→21:34)
[2021-10-24] MEDS: AMLODIPINE 5MG TABLET PO SCH (10:19)
[2021-10-24] MEDS: RIFAXIMIN 550 MG TABLET PO SCH ×2 (10:19→21:34)
[2021-10-24 12:00] VITALS: BP 131/32
[2021-10-24] MEDS: ERGOCALCIFEROL 50000UNITS CAPSULE PO SCH (13:32)
[2021-10-24 14:40] LABS: PLATELET ESTIMATE DECREASED
[2021-10-24 16:00] VITALS: BP 129/47
[2021-10-24 20:00] VITALS: BP 153/52
[2021-10-24] MEDS: INSULIN GLARGINE 100 UNITS/ML SUBCUT SCH (21:04)
[2021-10-25] VITALS: BP 127/40
[2021-10-25 04:00] VITALS: BP 132/42
[2021-10-25] MEDS: ACETAMINOPHEN 325MG TABLET PO PRN ×2 (05:28→14:04)
[2021-10-25] MEDS: BLOOD SUGAR DIAGNOSTIC STRIP TEST SCH ×4 (05:54→21:59)
[2021-10-25] MEDS: PANTOPRAZOLE 40MG DR TABLET PO SCH (06:14)
[2021-10-25] MEDS: LACTULOSE 20G/30ML UDC PO SCH ×3 (06:14→22:00)
[2021-10-25] MEDS: INSULIN LISPRO 100 UNITS/ML SUBCUT SCH ×4 (06:15→22:01)
[2021-10-25 08:00] VITALS: BP 121/57
[2021-10-25 08:19] LABS: BASOPHILS % 0.5 % (0.0-2.0); EOSINOPHILS % 1.2 % (0.0-5.0); HEMATOCRIT. 37.9 % (36.0-48.0); HEMOGLOBIN. 12.4 g/dL (12.0-16.0); LYMPHOCYTES % 20.9 % (20.0-50.0); MEAN CORPUSCULAR HEMOGLOBIN 24.9 pg (28.0-32.0); MEAN CORPUSCULAR VOLUME 76.2 fL (81.0-99.0); MEAN PLATELET VOLUME 10.2 fl (7.4-10.4); MONOCYTES % 14.7 % (2.0-8.0); NEUTROPHILS % 62.7 % (40.0-76.0); PLATELET 125 x1000/uL (130-400); RED BLOOD CELL COUNT 4.98 mill/uL (4.2-5.4); RED CELL DISTRIBUTION WIDTH 22.8 % (11.6-14.6)
[2021-10-25] MEDS: RIFAXIMIN 550 MG TABLET PO SCH ×2 (09:35→22:01)
[2021-10-25] MEDS: HYDRALAZINE HCL 25MG TABLET PO SCH ×3 (09:35→17:00)
[2021-10-25] MEDS: CITRIC ACID/SODIUM CITRATE SOLN 30ML UDC PO SCH ×3 (09:35→17:01)
[2021-10-25] MEDS: AMLODIPINE 5MG TABLET PO SCH (09:35)
[2021-10-25] MEDS: SOTALOL HCL 80MG TABLET PO SCH ×2 (09:35→22:02)
[2021-10-25 12:00] VITALS: BP 105/64
[2021-10-25 16:00] VITALS: BP 105/34
[2021-10-25 20:00] VITALS: BP 102/45
[2021-10-25] MEDS: INSULIN GLARGINE 100 UNITS/ML SUBCUT SCH (22:22)
[2021-10-26] VITALS: BP 143/71
[2021-10-26 04:00] VITALS: BP 115/77
[2021-10-26] MEDS: BLOOD SUGAR DIAGNOSTIC STRIP TEST SCH ×4 (05:42→20:54)
[2021-10-26] MEDS: LACTULOSE 20G/30ML UDC PO SCH ×3 (05:43→20:54)
[2021-10-26] MEDS: PANTOPRAZOLE 40MG DR TABLET PO SCH (05:43)
[2021-10-26] MEDS: INSULIN LISPRO 100 UNITS/ML SUBCUT SCH ×4 (05:43→20:54)
[2021-10-26 07:51] LABS: HEMATOCRIT. 38.6 % (36.0-48.0); HEMOGLOBIN. 12.7 g/dL (12.0-16.0); MEAN CORPUSCULAR HEMOGLOBIN 24.8 pg (28.0-32.0); MEAN CORPUSCULAR VOLUME 75.7 fL (81.0-99.0); PLATELET 149 x1000/uL (130-400); RED BLOOD CELL COUNT 5.09 mill/uL (4.2-5.4); RED CELL DISTRIBUTION WIDTH 22.4 % (11.6-14.6)
[2021-10-26 08:00] VITALS: BP 140/35
[2021-10-26] MEDS: SOTALOL HCL 80MG TABLET PO SCH ×2 (08:37→20:55)
[2021-10-26] MEDS: AMLODIPINE 5MG TABLET PO SCH (08:37)
[2021-10-26] MEDS: CITRIC ACID/SODIUM CITRATE SOLN 30ML UDC PO SCH ×3 (08:37→17:16)
[2021-10-26] MEDS: HYDRALAZINE HCL 25MG TABLET PO SCH ×3 (08:38→17:16)
[2021-10-26] MEDS: RIFAXIMIN 550 MG TABLET PO SCH ×2 (08:38→20:54)
[2021-10-26 11:32] LABS: CREATINE KINASE 78 IU/L (26-192)
[2021-10-26 12:00] VITALS: BP 106/34
[2021-10-26] MEDS: SODIUM CHLORIDE 0.45% 1,000 ML IV SCH (12:25)
[2021-10-26] MEDS: FAMOTIDINE 20MG TABLET PO SCH (12:25)
[2021-10-26 16:00] VITALS: BP 140/42
[2021-10-26 20:00] VITALS: BP 119/47
[2021-10-26] MEDS: INSULIN GLARGINE 100 UNITS/ML SUBCUT SCH (20:54)
[2021-10-26] MEDS: ZOLPIDEM TARTRATE 5MG TABLET PO PRN (21:30)
[2021-10-27] VITALS: BP 124/55
[2021-10-27 04:00] VITALS: BP 135/60
[2021-10-27] MEDS: LACTULOSE 20G/30ML UDC PO SCH ×3 (06:26→21:19)
[2021-10-27] MEDS: BLOOD SUGAR DIAGNOSTIC STRIP TEST SCH ×4 (06:26→20:10)
[2021-10-27] MEDS: SODIUM CHLORIDE 0.45% 1,000 ML IV SCH (06:26)
[2021-10-27] MEDS: INSULIN LISPRO 100 UNITS/ML SUBCUT SCH ×4 (06:27→21:19)
[2021-10-27 07:05] LABS: HEMATOCRIT. 35.5 % (36.0-48.0); HEMOGLOBIN. 11.8 g/dL (12.0-16.0); MEAN CORPUSCULAR HEMOGLOBIN 25.1 pg (28.0-32.0); MEAN CORPUSCULAR VOLUME 75.6 fL (81.0-99.0); RED CELL DISTRIBUTION WIDTH 22.8 % (11.6-14.6)
[2021-10-27 07:25] LABS: PLATELET ESTIMATE NORMAL
[2021-10-27 08:00] VITALS: BP 134/44
[2021-10-27] MEDS: SOTALOL HCL 80MG TABLET PO SCH ×2 (08:44→21:17)
[2021-10-27] MEDS: FAMOTIDINE 20MG TABLET PO SCH (08:44)
[2021-10-27] MEDS: AMLODIPINE 5MG TABLET PO SCH (08:44)
[2021-10-27] MEDS: CITRIC ACID/SODIUM CITRATE SOLN 30ML UDC PO SCH ×3 (08:44→17:28)
[2021-10-27] MEDS: HYDRALAZINE HCL 25MG TABLET PO SCH ×3 (08:44→17:28)
[2021-10-27 09:41] LABS: PLATELET 92 x1000/uL (130-400)
[2021-10-27 12:00] VITALS: BP 140/56
[2021-10-27] MEDS: GUAIFENESIN 200MG/10ML SUGAR FREE UDC PO PRN (14:34)
[2021-10-27 16:00] VITALS: BP 117/65
[2021-10-27] MEDS ORDERED: BENZONATATE 100MG CAPSULE PO PRN (17:00)
[2021-10-27 20:00] VITALS: BP 126/44
[2021-10-27] MEDS: INSULIN GLARGINE 100 UNITS/ML SUBCUT SCH (21:20)
[2021-10-28] VITALS: BP 101/52
[2021-10-28 04:00] VITALS: BP 104/56
[2021-10-28] MEDS: BLOOD SUGAR DIAGNOSTIC STRIP TEST SCH ×4 (05:57→20:22)
[2021-10-28] MEDS: LACTULOSE 20G/30ML UDC PO SCH ×3 (06:05→21:28)
[2021-10-28] MEDS: INSULIN LISPRO 100 UNITS/ML SUBCUT SCH ×4 (06:16→20:32)
[2021-10-28 07:11] LABS: BASOPHILS % 0.3 % (0.0-2.0); EOSINOPHILS % 1.8 % (0.0-5.0); HEMATOCRIT. 36.6 % (36.0-48.0); HEMOGLOBIN. 11.9 g/dL (12.0-16.0); LYMPHOCYTES % 15.8 % (20.0-50.0); MEAN CORPUSCULAR HEMOGLOBIN 24.7 pg (28.0-32.0); MEAN PLATELET VOLUME 10.2 fl (7.4-10.4); MONOCYTES % 12.7 % (2.0-8.0); NEUTROPHILS % 69.4 % (40.0-76.0); PLATELET 158 x1000/uL (130-400); RED BLOOD CELL COUNT 4.81 mill/uL (4.2-5.4); RED CELL DISTRIBUTION WIDTH 22.4 % (11.6-14.6)
[2021-10-28 08:00] VITALS: BP 128/54
[2021-10-28] MEDS ORDERED: SODIUM BICARBONATE 4% (2.4MEQ) 5ML VIAL IV ONE (08:41)
[2021-10-28] MEDS ORDERED: LIDOCAINE HCL 1% 10 MG/ML 10ML VIAL ONE (08:41)
[2021-10-28] MEDS: SOTALOL HCL 80MG TABLET PO SCH ×2 (09:14→20:29)
[2021-10-28] MEDS: HYDRALAZINE HCL 25MG TABLET PO SCH ×3 (09:14→17:00)
[2021-10-28] MEDS: AMLODIPINE 5MG TABLET PO SCH (09:14)
[2021-10-28] MEDS: CITRIC ACID/SODIUM CITRATE SOLN 30ML UDC PO SCH (09:14)
[2021-10-28] MEDS: FAMOTIDINE 20MG TABLET PO SCH (09:14)
[2021-10-28] MEDS: GUAIFENESIN 200MG/10ML SUGAR FREE UDC PO PRN (11:53)
[2021-10-28 12:00] VITALS: BP 122/58
[2021-10-28 16:00] VITALS: BP 102/70
[2021-10-28 20:00] VITALS: BP 131/58
[2021-10-28] MEDS: ZOLPIDEM TARTRATE 5MG TABLET PO PRN (21:28)
[2021-10-28] MEDS: INSULIN GLARGINE 100 UNITS/ML SUBCUT SCH (21:30)
[2021-10-29] VITALS (7 sets, daily range): BP systolic 112–147; BP diastolic 46–63
[2021-10-29] MEDS: LACTULOSE 20G/30ML UDC PO SCH ×3 (06:09→21:17)
[2021-10-29] MEDS: BLOOD SUGAR DIAGNOSTIC STRIP TEST SCH ×4 (06:12→21:18)
[2021-10-29] MEDS: INSULIN LISPRO 100 UNITS/ML SUBCUT SCH ×4 (06:12→21:19)
[2021-10-29 06:49] LABS: BASOPHILS % 0.4 % (0.0-2.0); EOSINOPHILS % 2.3 % (0.0-5.0); HEMATOCRIT. 39.9 % (36.0-48.0); HEMOGLOBIN. 13.1 g/dL (12.0-16.0); MEAN CORPUSCULAR VOLUME 76.2 fL (81.0-99.0); MONOCYTES % 12.8 % (2.0-8.0); NEUTROPHILS % 69.5 % (40.0-76.0); PLATELET 171 x1000/uL (130-400); RED BLOOD CELL COUNT 5.24 mill/uL (4.2-5.4); RED CELL DISTRIBUTION WIDTH 22.5 % (11.6-14.6)
[2021-10-29] MEDS: AMLODIPINE 5MG TABLET PO SCH (08:53)
[2021-10-29] MEDS: FAMOTIDINE 20MG TABLET PO SCH (08:53)
[2021-10-29] MEDS: HYDRALAZINE HCL 25MG TABLET PO SCH ×3 (08:53→17:09)
[2021-10-29] MEDS: SOTALOL HCL 80MG TABLET PO SCH ×2 (08:54→21:18)
[2021-10-29] MEDS: RIFAXIMIN 550 MG TABLET PO SCH (21:18)
[2021-10-29] MEDS: INSULIN GLARGINE 100 UNITS/ML SUBCUT SCH (21:20)
[2021-10-29] MEDS: ZOLPIDEM TARTRATE 5MG TABLET PO PRN (21:23)
[2021-10-30] VITALS: BP 117/39
[2021-10-30 04:00] VITALS: BP 126/67
[2021-10-30] MEDS: LACTULOSE 20G/30ML UDC PO SCH ×3 (06:12→21:36)
[2021-10-30] MEDS: BLOOD SUGAR DIAGNOSTIC STRIP TEST SCH ×4 (06:12→21:36)
[2021-10-30] MEDS: INSULIN LISPRO 100 UNITS/ML SUBCUT SCH ×4 (06:12→21:37)
[2021-10-30 08:20] VITALS: BP 119/46
[2021-10-30 08:22] LABS: BASOPHILS % 0.6 % (0.0-2.0); EOSINOPHILS % 1.6 % (0.0-5.0); HEMATOCRIT. 36.4 % (36.0-48.0); HEMOGLOBIN. 12.1 g/dL (12.0-16.0); LYMPHOCYTES % 12.8 % (20.0-50.0); MEAN CORPUSCULAR HEMOGLOBIN 25.1 pg (28.0-32.0); MEAN CORPUSCULAR VOLUME 75.8 fL (81.0-99.0); MEAN PLATELET VOLUME 9.7 fl (7.4-10.4); MONOCYTES % 12.6 % (2.0-8.0); NEUTROPHILS % 72.4 % (40.0-76.0); PLATELET 151 x1000/uL (130-400); RED CELL DISTRIBUTION WIDTH 22.8 % (11.6-14.6)
[2021-10-30] MEDS: HYDRALAZINE HCL 25MG TABLET PO SCH ×3 (08:50→17:00)
[2021-10-30] MEDS: FAMOTIDINE 20MG TABLET PO SCH (08:50)
[2021-10-30] MEDS: AMLODIPINE 5MG TABLET PO SCH (08:51)
[2021-10-30] MEDS: RIFAXIMIN 550 MG TABLET PO SCH ×2 (08:51→21:36)
[2021-10-30] MEDS: SOTALOL HCL 80MG TABLET PO SCH ×2 (08:51→21:36)
[2021-10-30 12:30] VITALS: BP 114/46
[2021-10-30 16:30] VITALS: BP 100/54
[2021-10-30 20:00] VITALS: BP 124/51
[2021-10-30] MEDS: ZOLPIDEM TARTRATE 5MG TABLET PO PRN (21:36)
[2021-10-30] MEDS: INSULIN GLARGINE 100 UNITS/ML SUBCUT SCH (21:38)
[2021-10-31] VITALS: BP 128/55
[2021-10-31 04:00] VITALS: BP 115/55
[2021-10-31] MEDS: INSULIN LISPRO 100 UNITS/ML SUBCUT SCH ×4 (06:08→23:26)
[2021-10-31] MEDS: BLOOD SUGAR DIAGNOSTIC STRIP TEST SCH ×4 (06:08→21:00)
[2021-10-31] MEDS: LACTULOSE 20G/30ML UDC PO SCH ×3 (06:09→23:28)
[2021-10-31 06:57] LABS: BASOPHILS % 0.4 % (0.0-2.0); EOSINOPHILS % 1.5 % (0.0-5.0); HEMATOCRIT. 36.5 % (36.0-48.0); LYMPHOCYTES % 11.8 % (20.0-50.0); MEAN CORPUSCULAR HEMOGLOBIN 24.9 pg (28.0-32.0); MEAN PLATELET VOLUME 10.1 fl (7.4-10.4); MONOCYTES % 12.3 % (2.0-8.0); PLATELET 157 x1000/uL (130-400); RED CELL DISTRIBUTION WIDTH 23.3 % (11.6-14.6)
[2021-10-31 07:18] LABS: PHOSPHORUS 2.7 mg/dL (2.5-4.9)
[2021-10-31 08:00] VITALS: BP 110/57
[2021-10-31] MEDS: ERGOCALCIFEROL 50000UNITS CAPSULE PO SCH (08:21)
[2021-10-31] MEDS: SOTALOL HCL 80MG TABLET PO SCH ×2 (08:22→23:22)
[2021-10-31] MEDS: HYDRALAZINE HCL 25MG TABLET PO SCH ×3 (08:22→17:00)
[2021-10-31] MEDS: RIFAXIMIN 550 MG TABLET PO SCH ×2 (08:22→23:14)
[2021-10-31] MEDS: FAMOTIDINE 20MG TABLET PO SCH (08:22)
[2021-10-31] MEDS: AMLODIPINE 5MG TABLET PO SCH (08:22)
[2021-10-31] MEDS: FUROSEMIDE 40MG TABLET PO SCH (09:44)
[2021-10-31 12:00] VITALS: BP 147/30
[2021-10-31 16:00] VITALS: BP 104/45
[2021-10-31] MEDS: ACETAMINOPHEN 325MG TABLET PO PRN (17:12)
[2021-10-31 20:00] VITALS: BP 115/59
[2021-10-31 20:56] LABS: INR 1.2
[2021-10-31] MEDS ORDERED: MIRTAZAPINE 15MG TABLET PO SCH (21:00)
[2021-10-31] MEDS: INSULIN GLARGINE 100 UNITS/ML SUBCUT SCH (23:27)
[2021-11-01] VITALS: BP 111/56
[2021-11-01 04:00] VITALS: BP 113/72
[2021-11-01] MEDS: BLOOD SUGAR DIAGNOSTIC STRIP TEST SCH ×3 (05:56→16:17)
[2021-11-01] MEDS: LACTULOSE 20G/30ML UDC PO SCH ×3 (06:00→14:57)
[2021-11-01] MEDS: INSULIN LISPRO 100 UNITS/ML SUBCUT SCH ×3 (06:13→17:16)
[2021-11-01 06:40] LABS: BASOPHILS % 0.3 % (0.0-2.0); EOSINOPHILS % 1.7 % (0.0-5.0); HEMATOCRIT. 36.6 % (36.0-48.0); HEMOGLOBIN. 12.2 g/dL (12.0-16.0); LYMPHOCYTES % 12.5 % (20.0-50.0); MEAN CORPUSCULAR HEMOGLOBIN 25.1 pg (28.0-32.0); MEAN CORPUSCULAR VOLUME 75.5 fL (81.0-99.0); MEAN PLATELET VOLUME 9.8 fl (7.4-10.4); MONOCYTES % 12.8 % (2.0-8.0); NEUTROPHILS % 72.7 % (40.0-76.0); PLATELET 142 x1000/uL (130-400); RED BLOOD CELL COUNT 4.85 mill/uL (4.2-5.4); RED CELL DISTRIBUTION WIDTH 23.9 % (11.6-14.6)
[2021-11-01 07:58] VITALS: BP 107/72
[2021-11-01] MEDS: HYDRALAZINE HCL 25MG TABLET PO SCH ×3 (09:00→16:57)
[2021-11-01] MEDS: SOTALOL HCL 80MG TABLET PO SCH (09:00)
[2021-11-01] MEDS: AMLODIPINE 5MG TABLET PO SCH (09:00)
[2021-11-01] MEDS: FUROSEMIDE 40MG TABLET PO SCH (09:00)
[2021-11-01] MEDS ORDERED: LIDOCAINE HCL 1% 10 MG/ML 10ML VIAL ONE (09:27)
[2021-11-01] MEDS ORDERED: SODIUM BICARBONATE 4% (2.4MEQ) 5ML VIAL IV ONE (09:28)
[2021-11-01 12:00] VITALS: BP 116/56
[2021-11-01 16:00] VITALS: BP 110/49
[2021-11-01 16:51] VITALS: BP 110/49
[2021-11-13] MEDS ORDERED: HYDR-4134 PO (11:45)
[2021-11-13] MEDS ORDERED: AMLO5TAB88 PO (11:46)
[2021-11-13] MEDS ORDERED: SOTA80TA PO (11:48)
[2021-11-13] MEDS ORDERED: FURO40TA5 PO (11:56)
== END 2021-11-01 17:45 | disposition home or self-care (01) | DRG 224 ==
LOC: ER 08:32 → EDBEDREQ 12:23 → ENRESERV 18:32 → ER 21:57 → 5EST 22:24 → CVICU 10-10 22:05 → 6WST 10-21 16:49 → 7EST 10-22 21:25
PROVIDERS: ADMIT Internal Medicine; ATTEND Internal Medicine
PROC: 30233N1 Transfusion of Nonautologous Red Blood Cells into Peripheral Vein, Percutaneous Approach (ICD-10-PCS; 2021-10-10)
PROC: 02HV33Z Insertion of Infusion Device into Superior Vena Cava, Percutaneous Approach (ICD-10-PCS; 2021-10-11)
PROC: B548ZZA Ultrasonography of Superior Vena Cava, Guidance (ICD-10-PCS; 2021-10-11)
PROC: 0W3P8ZZ Control Bleeding in Gastrointestinal Tract, Via Natural or Artificial Opening Endoscopic (ICD-10-PCS; 2021-10-15)
PROC: 4A023N7 Measurement of Cardiac Sampling and Pressure, Left Heart, Percutaneous Approach (ICD-10-PCS; principal; 2021-10-17)
PROC: 0JH608Z Insertion of Defibrillator Generator into Chest Subcutaneous Tissue and Fascia, Open Approach (ICD-10-PCS; 2021-10-17)
PROC: 02H63KZ Insertion of Defibrillator Lead into Right Atrium, Percutaneous Approach (ICD-10-PCS; 2021-10-17)
PROC: 02HK3KZ Insertion of Defibrillator Lead into Right Ventricle, Percutaneous Approach (ICD-10-PCS; 2021-10-17)
PROC: B312YZZ Fluoroscopy of Left Subclavian Artery using Other Contrast (ICD-10-PCS; 2021-10-17)
PROC: 4B02XTZ Measurement of Cardiac Defibrillator, External Approach (ICD-10-PCS; 2021-10-17)
PROC: B211YZZ Fluoroscopy of Multiple Coronary Arteries using Other Contrast (ICD-10-PCS; 2021-10-17)
PROC: B41FYZZ Fluoroscopy of Right Lower Extremity Arteries using Other Contrast (ICD-10-PCS; 2021-10-17)
PROC: 0W9G3ZZ Drainage of Peritoneal Cavity, Percutaneous Approach (ICD-10-PCS; 2021-10-20)
PROC: 0W9G3ZZ Drainage of Peritoneal Cavity, Percutaneous Approach (ICD-10-PCS; 2021-10-23)
PROC: 0W9G3ZZ Drainage of Peritoneal Cavity, Percutaneous Approach (ICD-10-PCS; 2021-10-28)
PROC: 0W9G3ZZ Drainage of Peritoneal Cavity, Percutaneous Approach (ICD-10-PCS; 2021-11-01)
DX: I49.5 Sick sinus syndrome (principal); E43 Unspecified severe protein-calorie malnutrition; I50.23 Acute on chronic systolic (congestive) heart failure; J96.01 Acute respiratory failure with hypoxia; I85.11 Secondary esophageal varices with bleeding; U07.1 COVID-19; N17.0 Acute kidney failure with tubular necrosis; I47.1 Supraventricular tachycardia; I13.0 Hypertensive heart and chronic kidney disease with heart failure and stage 1 through stage 4 chronic kidney disease, or unspecified chronic kidney disease; E87.1 Hypo-osmolality and hyponatremia; M48.56XA Collapsed vertebra, not elsewhere classified, lumbar region, initial encounter for fracture; G93.40 Encephalopathy, unspecified; K76.6 Portal hypertension; R18.8 Other ascites; R57.9 Shock, unspecified; E87.2 Acidosis; I48.4 Atypical atrial flutter; I82.612 Acute embolism and thrombosis of superficial veins of left upper extremity; K52.9 Noninfective gastroenteritis and colitis, unspecified; E11.22 Type 2 diabetes mellitus with diabetic chronic kidney disease; E11.65 Type 2 diabetes mellitus with hyperglycemia; E87.5 Hyperkalemia; N18.9 Chronic kidney disease, unspecified; K74.60 Unspecified cirrhosis of liver; K57.30 Diverticulosis of large intestine without perforation or abscess without bleeding; I25.5 Ischemic cardiomyopathy; D50.0 Iron deficiency anemia secondary to blood loss (chronic); D69.6 Thrombocytopenia, unspecified; E83.42 Hypomagnesemia; I25.10 Atherosclerotic heart disease of native coronary artery without angina pectoris; I27.20 Pulmonary hypertension, unspecified; I48.91 Unspecified atrial fibrillation; I08.0 Rheumatic disorders of both mitral and aortic valves; K31.89 Other diseases of stomach and duodenum; K43.9 Ventral hernia without obstruction or gangrene; K44.9 Diaphragmatic hernia without obstruction or gangrene; K76.0 Fatty (change of) liver, not elsewhere classified; Z79.4 Long term (current) use of insulin; Z79.899 Other long term (current) drug therapy; Z85.3 Personal history of malignant neoplasm of breast; Z87.11 Personal history of peptic ulcer disease; Z90.11 Acquired absence of right breast and nipple; Z90.49 Acquired absence of other specified parts of digestive tract; Z90.710 Acquired absence of both cervix and uterus; Z95.5 Presence of coronary angioplasty implant and graft; Y92.89 Other specified places as the place of occurrence of the external cause; Z68.28 Body mass index [BMI] 28.0-28.9, adult
CPT/HCPCS: 33249; 36415; 36573; 49083; 71045; 74176; 75820; 76700; 76770; 80048; 80053; 80076; 81003; 82010; 82040; 82140; 82248; 82270; 82550; 82607; 82746; 82962; 83036; 83540; 83550; 83615; 83735; 84100; 84484; 85014; 85018; 85025; 85044; 86705; 86709; 86803; 86850; 86900; 86920; 87340; 87426; 88108; 88312; 93005; 93306; 93308; 93458; 93640; 93970; 94644; 97110; 97116; 97162; 97165; 97167; 97530; 99291; A4565; C1721; C1725; C1760; C1769; C1777; C1887; C1893; C1898; C9113; J0282; J0360; J0461; J0690; J0696; J1160; J1200; J1265; J1580; J1644; J1815; J1940; J2250; J2270; J2370; J2405; J2704; J2765; J3010; J3475; J3480; J3490; J7030; J7050; J7060; J7070; P9016; Q9967; U0003; U0005

== ENCOUNTER 2021-11-11 10:58 | Emergency (ER) | payer MEDICARE ==
[~2021-11-11] VITALS: Ht 160 cm; Wt 68.0 kg
[2021-11-11 11:58] LABS: BASOPHILS % 0.2 % (0.0-2.0); EOSINOPHILS % 0.7 % (0.0-5.0); HEMOGLOBIN. 13.2 g/dL (12.0-16.0); LYMPHOCYTES % 9.4 % (20.0-50.0); MEAN CORPUSCULAR HEMOGLOBIN 25.1 pg (28.0-32.0); MEAN CORPUSCULAR VOLUME 78.1 fL (81.0-99.0); MEAN PLATELET VOLUME 9.1 fl (7.4-10.4); MONOCYTES % 13.7 % (2.0-8.0); PLATELET 122 x1000/uL (130-400); RED BLOOD CELL COUNT 5.25 mill/uL (4.2-5.4); RED CELL DISTRIBUTION WIDTH 23.8 % (11.6-14.6)
[2021-11-11 12:05] LABS: CHLORIDE 100 mEq/L (98-107)
[2021-11-11 12:07] LABS: INR 1.3; PROTHROMBIN TIME 13.5 sec (9.6-11.0)
[2021-11-11 13:58] LABS: PLATELET ESTIMATE SLIGHTLY DECREASED
[2021-11-11] MEDS ORDERED: LIDOCAINE HCL 1% 10 MG/ML 10ML VIAL ONE (14:20)
[2021-11-11 18:00] VITALS: BP 170/59
[2021-11-13] MEDS ORDERED: HYDR-4134 PO (11:45)
[2021-11-13] MEDS ORDERED: AMLO5TAB88 PO (11:46)
[2021-11-13] MEDS ORDERED: SOTA80TA PO (11:48)
[2021-11-13] MEDS ORDERED: FURO40TA5 PO (11:56)
== END 2021-11-11 19:22 | disposition home or self-care (01) ==
LOC: ER 10:58
DX: R14.0 Abdominal distension (gaseous) (principal); I10 Essential (primary) hypertension; E11.9 Type 2 diabetes mellitus without complications; Z98.890 Other specified postprocedural states; Z20.822 Contact with and (suspected) exposure to COVID-19
CPT/HCPCS: 36415; 49083; 80053; 85025; 85610; 85730; 87070; 87205; 87426; 89050; 99285; J3490